=== PATIENT | male | born 1970 | race American Indian/Alaskan Native ===

== ENCOUNTER 2017-05-21 19:01 | Inpatient (IN) | payer OTHER ==
[2017-05-21] MEDS ORDERED: ASPIRIN PO ONE (19:39)
[2017-05-21] MEDS ORDERED: ASPIRIN ONE (19:43)
[2017-05-21 19:56] LABS: Basophils # (Auto) 0.1 K/mm3 (0.0-0.1); Basophils % (Auto) 0.7 % (0.0-1.8); Eosinophils # (Auto) 0.2 K/mm3 (0.0-0.4); Eosinophils % (Auto) 2.5 % (0.0-4.3); Hematocrit 44.2 % (35.5-45.6); Hemoglobin 14.9 gm/dl (11.8-15.2); Lymphocytes # (Auto) 2.4 K/mm3 (1.2-5.4); Lymphocytes % (Auto) 26.6 % (13.4-35.0); Mean Corpuscular HGB Conc 34 % (32-34); Mean Corpuscular Hemoglobin 30 pg (28-32); Mean Corpuscular Volume 88 fl (84-94); Monocytes # (Auto) 0.5 K/mm3 (0.0-0.8); Monocytes % (Auto) 5.8 % (0.0-7.3); Platelet Count 226 K/mm3 (140-440)
[2017-05-21 20:36] LABS: BUN/Creatinine Ratio 12; Blood Urea Nitrogen 13 mg/dL (9-20); Calcium 8.7 mg/dL (8.4-10.2); Hemolysis Index 14
--- NOTE | 2017-05-21 21:34 | XRay Report ---
FINAL REPORT EXAM: XR CHEST ROUTINE 2V HISTORY: Shortness of breath TECHNIQUE: Two view chest PA and lateral PRIORS: None. FINDINGS: Cardiac and mediastinal contours are unremarkable. No focal pulmonary infiltrate is identified. No pleural fluid collection seen. Pulmonary vasculature is unremarkable. IMPRESSION: Negative two-view chest
[2017-05-21 22:16] LABS: Bilirubin,Urine NEG (Negative); Blood,Urine NEG (Negative); Color,Urine Yellow (Yellow); Mucus,Urine FEW /HPF; Nitrite,Urine NEG (Negative)
[2017-05-22] MEDS ORDERED: NACL 0.9% 1000 ML 1,000 ML IV ONE (00:05)
[2017-05-22] MEDS ORDERED: MORPHINE IV ONE (00:31)
[2017-05-22] MEDS ORDERED: ZOFRAN IV ONE (00:31)
[2017-05-22] MEDS ORDERED: TESSALON PERLES PO ONE (00:31)
[2017-05-22] MEDS ORDERED: NACL ONE (01:31)
[2017-05-22] MEDS ORDERED: NACL 0.9% 1000 ML 2,000 ML IV ONE (01:48)
--- NOTE | 2017-05-22 03:33 | Emergency Department Report ---
HPI - General Chief Complaint: Chest Pain Time Seen by Provider: 05/21/17 23:37 - HPI HPI: The patient is a 46 yo male with a history of congestive heart failure, whom presents for evaluation of dyspnea and chest pain. He states that he has experienced bilateral chest pain for the past one day, moderate in severity, sharp and tightness in quality, exacerbated with taking deep breaths, and associated with worsening of shortness of breath and baseline. He has experienced progressive severe shortness of breath for the past week, exacerbated with exertion or activity, improved with sitting up in rest. The patient denies trauma to the chest, headache, cough, hemoptysis, paresthesia, motor deficit, or other focal neurological deficit. ED Past Medical Hx - Past Medical History Previous Medical History?: Yes Hx Hypertension: Yes Hx Congestive Heart Failure: Yes - Surgical History Past Surgical History?: No - Social History Smoking Status: Current Every Day Smoker Substance Use Type: Marijuana ED Review of Systems ROS: Stated complaint: CHEST PAIN Other details as noted in HPI Constitutional: denies: fever ENT: denies: throat or neck pain Respiratory: denies: cough reports shortness of breath Cardiovascular: reports chest pain Endocrine: denies unexplained weight loss or gain Gastrointestinal: denies: abdominal pain, nausea Genitourinary: denies: dysuria Musculoskeletal: denies: leg swelling Skin: denies: rash Neurological: denies: headache Hematological/Lymphatic: denies: easy bleeding or easy bruising Psych: denies sadness or hopelessness Physical Exam - Physical Exam Vital Signs: Vital Signs 05/21/17 05/22/17 19:34 02:00 Temperature 98.6 F Pulse Rate 108 H Respiratory 20 20 Rate Blood Pressure 167/104 O2 Sat by Pulse 93 Oximetry Physical Exam: General: well-nourished, well-developed, no acute distress Head: Normocephalic, atraumatic Eyes: normal sclera ENT: Mucous membranes are pink and moist Neck: trachea midline, neck supple, No neck stiffness, no cervical adenopathy Respiratory: Patient tachypnea, moderate diminished breath sounds in respiratory bibasilar lung marin Cardio: S1 and S2 present, no murmurs, rubs, gallops, capillary refill is brisk Abdomen: Normoactive bowel sounds, soft abdomen, no rigidity, no guarding or rebound tenderness Musc: 1+ pitting edema of bilateral lower legs present Skin: No rash Neuro: no facial drooping, normal speech Psych: Normal affect ED Course Vital Signs 05/21/17 05/22/17 19:34 02:00 Temperature 98.6 F Pulse Rate 108 H Respiratory 20 20 Rate Blood Pressure 167/104 O2 Sat by Pulse 93 Oximetry ED Medical Decision Making - Lab Data Result diagrams: 05/21/17 19:47 05/21/17 19:47 - Medical Decision Making The patient was seen and examined by myself. The patient is placed on a environmental monitoring technician and continuous pulse ox. On initial evaluation, the patient was found to be in no distress. EKG was negative for findings suggestive of acute cardiac infarct. Labs and imaging are obtained. The patient is given pain medicine. Chest x-ray is negative for pneumothorax, focal consolidation, pulmonary vascular congestion, pleural effusion, or other obvious acute cardiopulmonary disease process. Lab results Exhibited elevated BNP of 900, and otherwisewere non-concerning including levels of troponin, WBC, hemoglobin, hematocrit, electrolytes, renal function. CT angiogram of the chest exhibits bilateral pulmonary emboli. A heparin bolus and infusion is ordered. The on-call hospitalist service was contacted. They agreed to admit the patient for further treatment and close monitoring. The ED admit order was placed. The patient was admitted in guarded condition. Critical care attestation.: If time is entered above; I have spent that time in minutes in the direct care of this critically ill patient, excluding procedure time. ED Disposition Clinical Impression: Bilateral pulmonary embolism, Acute chest pain Disposition: OP ADMIT IP TO THIS HOSP Is pt being admited?: Yes Does the pt Need Aspirin: Yes Condition: Serious Instructions: Chest Pain (ED) Referrals: PRIMARY CARE, [Primary Care Provider] - 3-5 Days Time of Disposition: 03:35
[2017-05-22] MEDS ORDERED: HEPARIN 10,000 UNITS/10 ML IV ONE (03:35)
[2017-05-22] MEDS ORDERED: BABY ASPIRIN PO ONE (03:35)
--- NOTE | 2017-05-22 03:36 | Cat Scan Report ---
FINAL REPORT PROCEDURE: CT ANGIO CHEST TECHNIQUE: Computerized tomographic angiography of the chest was performed after the IV injection of iodinated nonionic contrast including image processing. The image data was postprocessed using 2-dimensional multiplanar reformatted (MPR) and 3-dimensional (MIP and/or volume rendered) techniques. HISTORY: dyspnea w/exertion COMPARISON: No prior studies are available for comparison. FINDINGS: Heart and pericardium: Normal. Thoracic aorta: There is no thoracic aortic aneurysm or dissection.. Pulmonary vasculature: There are distal bilateral pulmonary emboli. There are no large central emboli.. Lymph nodes: There is mediastinal and hilar lymphadenopathy.. Lungs: The lungs are well-expanded. There are multiple noncalcified pulmonary nodules. Largest nodules at the left lung base measuring 11 millimeters. These could be granulomas. However, possibility of metastatic malignancy cannot be entirely excluded. There are no infiltrates. Pleural space: No effusion, thickening, or pneumothorax. Musculoskeletal structures: No significant abnormality. Upper abdominal structures: No significant abnormality. IMPRESSION: There are bilateral pulmonary emboli. There is no thoracic aortic aneurysm or dissection. There is mediastinal and hilar lymphadenopathy.. There are multiple noncalcified pulmonary nodules. Largest nodules at the left lung base measuring 11 millimeters. These could be granulomas. However, possibility of metastatic malignancy cannot be entirely excluded. There are no infiltrates. Dr. Turner was notified by telephone at 2:31 a.m. central time.
[2017-05-22] MEDS ORDERED: HEPARIN/ 0.45% NACL-25,000 UNIT/500 ML 25,000 UNIT/500 ML BAG IV SCH (04:00)
[2017-05-22] MEDS ORDERED: MILK OF MAGNESIA PO PRN (04:08)
[2017-05-22] MEDS ORDERED: ZOFRAN IV PRN (04:08)
[2017-05-22] MEDS ORDERED: NORCO 5/325 PO PRN (04:08)
[2017-05-22] MEDS ORDERED: TYLENOL PO PRN (04:08)
[2017-05-22] MEDS ORDERED: DULCOLAX PR PRN (04:08)
[2017-05-22 04:12] LABS: Hematocrit 43.3 % (35.5-45.6); Hemoglobin 14.6 gm/dl (11.8-15.2)
[2017-05-22 04:14] LABS: INR 0.98 (0.87-1.13); Partial Thromboplastin Time 26.9 Sec. (24.2-36.6)
[2017-05-22] MEDS ORDERED: APRESOLINE IV ONE (04:28)
[2017-05-22] MEDS ORDERED: D50W (25GM) Syringe IV PRN (04:49)
--- NOTE | 2017-05-22 05:14 | History and Physical Report ---
History of Present Illness Date of examination: 05/22/17 Date of admission: 05/22/17 04:08 Chief complaint: Shortness of breath History of present illness: 46-year-old -[place] male with past medical history significant for congestive heart failure, hypertension, borderline diabetes, A. fib presented to the emergency department complaining of shortness of breath for the last 5-6 days and progressively getting worse. Patient is also complaining chest pain that started yesterday morning, sting-like pain, 7 out of 10 in intensity, with no radiation, associated with shortness of breath, no diaphoresis. Patient denied leg swelling, palpitation, no nausea, vomiting. Patient used to live in [place] and moved to [place] 3 months ago. She ran out of most of his medications. Initially his ejection fraction was 10% but later improved but don 't know the number. Last time he saw his aerophysicist was 3 years ago. REVIEW OF SYSTEMS: GENERAL: no weight change, no fatigue, no fever HEAD: no head ache EYES: no blurry vision, no acute visual loss EARS: no hearing loss, no discharge, no earache NOSE: no stuffiness, no sneezing, no discharge MOUTH, THROAT AND NECK: no bleeding gums, no sore throat, no swollen neck CARDIAC: As stated in the HPI. RESPIRATORY: As stated in the HPI. GI: no decreased appetite, no nausea, no vomiting, no dysphagia, no diarrhea, no constipation, no abdominal pain URINARY: no change in frequency, no urgency, no polyuria, no hematuria, no incontinence MUSCULOSKELETAL: no muscle weakness, no pain, no joint stiffness NEUROLOGIC: no loss of sensation/numbness, no tingling, no tremors, no weakness/ paralysis HEMATOLOGIC: no anemia, no easy bruising SKIN: no rashes ENDOCRINE: no heat/cold intolerance, no polyuria, no polydipsia, no thyroid problems, + diabetes PSYCHIATRIC: no anxiety, no depression, no suicidal ideations Past History Past Medical History: diabetes, heart failure, hypertension Past Surgical History: No surgical history Social history: smoking ( marijuana), full code. denies: alcohol abuse, prescription drug abuse, IV drug use Family history: no significant family history Medications and Allergies Allergies Allergy/AdvReac Type Severity Reaction Status Date / Time No Known Allergies Allergy Unverified 05/21/17 19:33 Active Meds: Active Medications Acetaminophen (Tylenol) 650 mg PO Q4H PRN PRN Reason: Pain MILD(1-3)/Fever >100.5/MOREL Acetaminophen/Hydrocodone Bitart ([place] 5/325) 2 each PO Q6H PRN PRN Reason: Pain, Moderate (4-6) Bisacodyl (Dulcolax) 10 mg ND QDAY PRN PRN Reason: Constipation unrelieved by MOM Dextrose (D50w (25gm) Syringe) 50 ml IV PRN PRN PRN Reason: Hypoglycemia Docusate Sodium (Colace) 100 mg PO BID [facility] Famotidine (Pepcid) 20 mg PO BID [facility] Heparin Sodium/Sodium Chloride (Heparin/ 0.45% Nacl-25,000 Unit/500 Ml) 25,000 unit in 500 mls @ 30 mls/hr IV TITR [facility]; 1,500 UNITS/HR PRN Reason: Protocol Last Admin: 05/22/17 04:27 Dose: 1,500 units/hr, 30 mls/hr Insulin Aspart (Novolog) 0 units SUB-Q ACHS [facility] PRN Reason: Protocol Magnesium Hydroxide (Milk Of Magnesia) 30 ml PO Q4H PRN PRN Reason: Constipation Ondansetron HCl (Zofran) 4 mg IV Q8H PRN PRN Reason: N/V unrelieved by Reglan Exam - Physical Exam Narrative exam: Not in cardiopulmonary distress. The patient appeared well nourished and normally developed. Vital signs as documented. Head exam is unremarkable. No scleral icterus . Neck is without jugular venous distension, thyromegaly, or carotid bruits. Lungs are clear to auscultation. Cardiac exam reveals regular rate and Rhythm. First and second heart sounds normal. No murmurs, rubs or gallops. Abdominal exam reveals normal bowel sounds, no masses, no organomegaly and no aortic enlargement. Extremities are nonedematous and both femoral and pedal pulses are normal. 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 No focal weakness. - Constitutional Vitals: Temp Pulse Resp BP Pulse Ox 98.6 F 113 H 15 162/108 93 05/21/17 19:34 05/22/17 04:56 05/22/17 04:46 05/22/17 04:56 05/21/17 19:34 Results - Labs CBC & Chem 7: 05/22/17 03:42 05/21/17 19:47 Labs: Laboratory Last Values WBC 8.9 K/mm3 (4.5-11.0) 05/21/17 19:47 RBC 5.00 M/mm3 (3.65-5.03) 05/21/17 19:47 Hgb 14.6 gm/dl (11.8-15.2) 05/22/17 03:42 Hct 43.3 % (35.5-45.6) 05/22/17 03:42 MCV 88 fl (84-94) 05/21/17 19:47 MCH 30 pg (28-32) 05/21/17 19:47 MCHC 34 % (32-34) 05/21/17 19:47 RDW 13.0 % (13.2-15.2) L 05/21/17 19:47 Plt Count 199 K/mm3 (140-440) 05/22/17 03:42 Lymph % (Auto) 26.6 % (13.4-35.0) 05/21/17 19:47 [place] % (Auto) 5.8 % (0.0-7.3) 05/21/17 19:47 Eos % (Auto) 2.5 % (0.0-4.3) 05/21/17 19:47 Baso % (Auto) 0.7 % (0.0-1.8) 05/21/17 19:47 Lymph # 2.4 K/mm3 (1.2-5.4) 05/21/17 19:47 [place] # 0.5 K/mm3 (0.0-0.8) 05/21/17 19:47 Eos # 0.2 K/mm3 (0.0-0.4) 05/21/17 19:47 Baso # 0.1 K/mm3 (0.0-0.1) 05/21/17 19:47 Seg Neutrophils % 64.4 % (40.0-70.0) 05/21/17 19:47 Seg Neutrophils # 5.7 K/mm3 (1.8-7.7) 05/21/17 19:47 PT 13.5 Sec. (12.2-14.9) 05/22/17 03:42 INR 0.98 (0.87-1.13) 05/22/17 03:42 APTT 26.9 Sec. (24.2-36.6) 05/22/17 03:42 Sodium 137 mmol/L (137-145) 05/21/17 19:47 Potassium 4.1 mmol/L (3.6-5.0) 05/21/17 19:47 Chloride 96.8 mmol/L (98-107) L 05/21/17 19:47 Carbon Dioxide 24 mmol/L (22-30) 05/21/17 19:47 Anion Gap 20 mmol/L 05/21/17 19:47 BUN 13 mg/dL (9-20) 05/21/17 19:47 Creatinine 1.1 mg/dL (0.8-1.5) 05/21/17 19:47 Estimated GFR > 60 ml/min 05/21/17 19:47 BUN/Creatinine Ratio 12 % 05/21/17 19:47 Glucose 279 mg/dL (75-100) H 05/21/17 19:47 Calcium 8.7 mg/dL (8.4-10.2) 05/21/17 19:47 Troponin T < 0.010 ng/mL (0.00-0.029) 05/22/17 01:36 NT-Pro-B Natriuret Pep 846.2 pg/mL (0-450) H 05/21/17 22:56 Urine Color Yellow (Yellow) 05/21/17 21:49 Urine Turbidity Clear (Clear) 05/21/17 21:49 Urine pH 5.0 (5.0-7.0) 05/21/17 21:49 Ur Specific [place] 1.023 (1.003-1.030) 05/21/17 21:49 Urine Protein 100 mg/dl mg/dL (Negative) 05/21/17 21:49 Urine Glucose (UA) >=500 mg/dL (Negative) 05/21/17 21:49 Urine Ketones Neg mg/dL (Negative) 05/21/17 21:49 Urine Blood Neg (Negative) 05/21/17 21:49 Urine Nitrite Neg (Negative) 05/21/17 21:49 Urine Bilirubin Neg (Negative) 05/21/17 21:49 Urine Urobilinogen 2.0 mg/dL (<2.0) 05/21/17 21:49 Ur Leukocyte Esterase Neg (Negative) 05/21/17 21:49 Urine WBC (Auto) 2.0 /HPF (0.0-6.0) 05/21/17 21:49 Urine RBC (Auto) 2.0 /HPF (0.0-6.0) 05/21/17 21:49 U Epithel Cells (Auto) 2.0 /HPF (0-13.0) 05/21/17 21:49 Urine Mucus Few /HPF 05/21/17 21:49 Influenza A (Rapid) Negative (Negative) 05/22/17 02:21 Influenza B (Rapid) Negative (Negative) 05/22/17 02:21 - Imaging and Cardiology CT scan - chest: report reviewed (bilateral PE, malignancy cannot be ruled out) Assessment and Plan Assessment and plan: Bilateral PE ?Lung cancer based on CT scan finding CHF Atrial fibrillation status post cardioversion 2005 Diabetes mellitus type 2 Uncontrolled hypertension Medication noncompliance - Patient is on heparin drip - Echo, [facility] consulted - Resume appropriate home medications - Sliding-scale insulin DVT prophylaxis -Therapeutic heparin Disposition - Admit to telemetry Advance Directives: Yes VTE prophylaxis?: Chemical Plan of care discussed with patient/family: Yes
[2017-05-22] MEDS ORDERED: COREG ONE (06:35)
[2017-05-22] MEDS: COREG PO SCH ×3 (06:36→23:13)
[2017-05-22] MEDS: NOVOLOG SUB-Q SCH ×4 (08:45→23:18)
[2017-05-22] MEDS ORDERED: APRESOLINE IV PRN (10:00)
[2017-05-22] MEDS: COLACE PO SCH ×2 (11:02→23:13)
[2017-05-22] MEDS: PEPCID PO SCH ×2 (11:03→23:13)
[2017-05-22] MEDS: ALDACTONE PO SCH (11:34)
[2017-05-22] MEDS: IMDUR PO SCH (11:58)
--- NOTE | 2017-05-22 16:33 | Event Note ---
Date: 05/22/17 Patient seen and examined in the ER in acute distress diagnoses discussed with the patient. We'll continue current treatment plan. Positive counseling provided to the patient against tobacco use and also against marijuana use patient verbalized understanding of 15 minutes was spent on this counseling.
--- NOTE | 2017-05-22 18:12 | Consultation ---
History of Present Illness Consult date: 05/22/17 Consult reason: chest pain History of present illness: This is a 46-year-old gentleman with a past medical history of congestive heart failure per his report, borderline diabetes, and hypertension who recently moved here from [facility]. The patient reports he was not taking any medications prior to this admission. In the emergency department the patient was noted to have a blood pressure of 167/104 mmHg. He was tachycardic sinus at 108 bpm. His hemoglobin A1c was 8.0 and his blood glucose was 279. The patient presented to the emergency department complaining of chest pain or shortness of breath. A CT of the chest revealed bilateral pulmonary emboli. Currently the patient is on IV heparin drip. Past History Past Medical History: diabetes, heart failure, hypertension Past Surgical History: No surgical history Social history: smoking ( marijuana), full code. denies: alcohol abuse, prescription drug abuse, IV drug use Family history: no significant family history Medications and Allergies Allergies Allergy/AdvReac Type Severity Reaction Status Date / Time No Known Allergies Allergy Unverified 05/21/17 19:33 Home Medications Medication Instructions Recorded Confirmed Last Taken Type Carvedilol [Coreg] 6.25 mg PO BID 05/22/17 05/22/17 05/21/17 History Digoxin [Digitek] 125 mcg PO QDAY 05/22/17 05/22/17 04/21/17 History Glimepiride [Amaryl] 4 mg PO QAM 05/22/17 05/22/17 04/21/17 History Isosorbide Mononitrate 30 mg PO QAM 05/22/17 05/22/17 04/21/17 History Spironolactone [Aldactone] 50 mg PO QDAY 05/22/17 05/22/17 05/21/17 History Warfarin [Coumadin] 5 mg PO QDAY 05/22/17 05/22/17 03/21/17 History 2 tablets PO QD Active Meds: Active Medications Acetaminophen (Tylenol) 650 mg PO Q4H PRN PRN Reason: Pain MILD(1-3)/Fever >100.5/MOREL Acetaminophen/Hydrocodone Bitart ([place] 5/325) 2 each PO Q6H PRN PRN Reason: Pain, Moderate (4-6) Last Admin: 05/22/17 07:58 Dose: 2 each Bisacodyl (Dulcolax) 10 mg NM QDAY PRN PRN Reason: Constipation unrelieved by MOM Carvedilol (Coreg) 6.25 mg PO BID [facility] Last Admin: 05/22/17 11:02 Dose: 6.25 mg Dextrose (D50w (25gm) Syringe) 50 ml IV PRN PRN PRN Reason: Hypoglycemia Digoxin (Lanoxin) 0.125 mg PO QDAY@1700 [facility] Docusate Sodium (Colace) 100 mg PO BID [facility] Last Admin: 05/22/17 11:02 Dose: 100 mg Famotidine (Pepcid) 20 mg PO BID [facility] Last Admin: 05/22/17 11:03 Dose: 20 mg Hydralazine HCl (Apresoline) 10 mg IV Q4H PRN PRN Reason: Hypertension Heparin Sodium/Sodium Chloride (Heparin/ 0.45% Nacl-25,000 Unit/500 Ml) 25,000 unit in 500 mls @ 30 mls/hr IV TITR [facility]; 1,500 UNITS/HR PRN Reason: Protocol Last Titration: 05/22/17 12:30 Dose: 32 units/hr, 0.64 mls/hr Insulin Aspart (Novolog) 0 units SUB-Q ACHS [facility] PRN Reason: Protocol Last Admin: 05/22/17 15:37 Dose: 2 units Isosorbide Mononitrate (Imdur) 30 mg PO QAM [facility] Last Admin: 05/22/17 11:58 Dose: 30 mg Magnesium Hydroxide (Milk Of Magnesia) 30 ml PO Q4H PRN PRN Reason: Constipation Ondansetron HCl (Zofran) 4 mg IV Q8H PRN PRN Reason: N/V unrelieved by Reglan Last Admin: 05/22/17 09:38 Dose: 4 mg Spironolactone (Aldactone) 50 mg PO QDAY [facility] Last Admin: 05/22/17 11:34 Dose: 50 mg Warfarin Sodium (Coumadin) 7.5 mg PO DAILY@1700 [facility] PRN Reason: Protocol Review of Systems Constitutional: no weight loss, no weight gain, no fever, no chills Ears, nose, mouth and throat: no ear pain, no ear discharge Cardiovascular: chest pain, shortness of breath, dyspnea on exertion, no orthopnea, no palpitations Respiratory: no cough with sputum, no wheezing, no pleurisy Gastrointestinal: nausea, no abdominal pain, no vomiting Genitourinary Male: no dysuria, no hematuria, no flank pain Rectal: no pain, no incontinence Musculoskeletal: no neck stiffness, no neck pain Integumentary: no rash, no pruritis Neurological: headaches Psychiatric: no anxiety, no memory loss Endocrine: no cold intolerance, no heat intolerance Hematologic/Lymphatic: no easy bruising, no easy bleeding Allergic/Immunologic: no urticaria Physical Examination Vital Signs Temp Pulse Resp BP Pulse Ox 98.6 F 108 H 20 167/104 93 05/21/17 19:34 05/21/17 19:34 05/21/17 19:34 05/21/17 19:34 05/21/17 19:34 General appearance: no acute distress HEENT: Positive: PERRL Neck: Positive: neck supple, trachea midline Cardiac: Positive: Regular Rhythm, Tachycardia Lungs: Positive: Normal Exam, clear to auscultation, Normal Breath Sounds Neuro: Positive: Grossly Intact Abdomen: Positive: Unremarkable, Soft, Active Bowel Sounds Male genitourinary: Positive: deferred Skin: Negative: Rash, Suspicious Lesions Extremities: Present: normal, warm. Absent: edema Results 05/22/17 03:42 05/21/17 19:47 Coagulation 05/22/17 Range/Units 03:42 PT 13.5 (12.2-14.9) Sec. INR 0.98 (0.87-1.13) APTT 26.9 (24.2-36.6) Sec. CBC 05/21/17 05/22/17 Range/Units 19:47 03:42 WBC 8.9 (4.5-11.0) K/mm3 RBC 5.00 (3.65-5.03) M/mm3 Hgb 14.9 14.6 (11.8-15.2) gm/dl Hct 44.2 43.3 (35.5-45.6) % Plt Count 226 199 (140-440) K/mm3 Lymph # 2.4 (1.2-5.4) K/mm3 [place] # 0.5 (0.0-0.8) K/mm3 Eos # 0.2 (0.0-0.4) K/mm3 Baso # 0.1 (0.0-0.1) K/mm3 Comprehensive Metabolic Panel 05/21/17 Range/Units 19:47 Sodium 137 (137-145) mmol/L Potassium 4.1 (3.6-5.0) mmol/L Chloride 96.8 L (98-107) mmol/L Carbon Dioxide 24 (22-30) mmol/L BUN 13 (9-20) mg/dL Creatinine 1.1 (0.8-1.5) mg/dL Glucose 279 H (75-100) mg/dL Calcium 8.7 (8.4-10.2) mg/dL - Imaging and Cardiology Echo: pending Assessment and Plan 46-year-old male who recently moved here from [facility] presents to [facility] complaining of chest pain or shortness of breath. The patient reports that he has a history of borderline diabetes, heart failure, and hypertension. Of note the patient had not been taking any of his medications prior to his presentation in the emergency department. Within the emergency department the patient had a CT of the chest which revealed bilateral pulmonary emboli. Plan: 1. Continue supportive care 2. Echocardiogram 3. Blood pressure management
[2017-05-22] MEDS: LANOXIN PO SCH (18:27)
[2017-05-22] MEDS: COUMADIN PO SCH (18:27)
[2017-05-23 06:36] LABS: Basophils % (Auto) 0.3 % (0.0-1.8); Eosinophils # (Auto) 0.2 K/mm3 (0.0-0.4); Eosinophils % (Auto) 1.5 % (0.0-4.3); Hematocrit 43.4 % (35.5-45.6); Hemoglobin 14.3 gm/dl (11.8-15.2); Lymphocytes # (Auto) 2.7 K/mm3 (1.2-5.4); Mean Corpuscular HGB Conc 33 % (32-34); Mean Corpuscular Hemoglobin 29 pg (28-32); Mean Corpuscular Volume 89 fl (84-94); Monocytes # (Auto) 0.8 K/mm3 (0.0-0.8); Monocytes % (Auto) 6.8 % (0.0-7.3); Platelet Count 242 K/mm3 (140-440); Red Blood Count 4.89 M/mm3 (3.65-5.03); Red Cell Distribution Width 13.1 % (13.2-15.2)
[2017-05-23 06:46] LABS: INR 0.96 (0.87-1.13)
[2017-05-23 06:49] LABS: Heparin anti-factor XA < 0.10 U.I./ml (0.3-0.7)
[2017-05-23 07:03] LABS: BUN/Creatinine Ratio 14; Blood Urea Nitrogen 13 mg/dL (9-20); Calcium 8.9 mg/dL (8.4-10.2); Hemolysis Index 64
[2017-05-23] MEDS: NOVOLOG SUB-Q SCH ×2 (08:12→22:00)
[2017-05-23] MEDS ORDERED: HEPARIN 10,000 UNITS/10 ML IV NR (08:30)
--- NOTE | 2017-05-23 08:49 | Progress Note ---
Assessment and Plan Acute on chronic systolic heart failure Acute bilateral pulmonary embolism Hypertension accelerated Respiratory failure acute Obesity Recommend change to Lovenox continue Coumadin will add BERNARD inhibitor in view LV dysfunction increase Coreg for better heart rate control Subjective Date of service: 05/23/17 Principal diagnosis: bilateral pulmonary embolism and systolic heart failure Interval history: Patient is laying in bed without any chest pain or shortness of breath Objective Vital Signs Temp Pulse Resp BP BP Pulse Ox 05/23/17 06:10 97.8 F 104 H 18 150/100 91 05/23/17 00:18 90 05/22/17 23:56 98.7 F 93 H 20 143/87 85 05/22/17 22:09 98.4 F 95 H 18 147/98 93 05/22/17 21:30 96 H 23 143/104 05/22/17 21:20 108 H 26 H 141/103 05/22/17 21:16 98 H 18 141/103 97 05/22/17 21:09 141/103 05/22/17 18:53 143/104 05/22/17 18:27 96 H 155/100 05/22/17 18:00 155/100 05/22/17 17:16 29 H 146/94 05/22/17 17:00 23 146/94 05/22/17 16:46 26 H 140/91 05/22/17 16:30 23 142/96 05/22/17 16:16 22 142/96 05/22/17 16:00 23 140/91 05/22/17 15:46 24 143/97 05/22/17 15:30 97 H 23 143/97 05/22/17 15:16 97 H 23 142/96 05/22/17 15:00 97 H 24 142/96 05/22/17 14:46 94 H 26 H 146/99 05/22/17 14:42 98 H 23 143/97 05/22/17 13:30 143/97 05/22/17 13:15 143/97 05/22/17 13:00 143/97 05/22/17 12:46 148/94 05/22/17 12:30 86 148/94 05/22/17 12:16 95 H 148/94 05/22/17 12:00 90 148/94 05/22/17 11:46 92 H 143/100 05/22/17 11:34 96 H 155/100 05/22/17 11:30 94 H 143/100 05/22/17 11:16 97 H 24 143/100 05/22/17 11:02 96 H 155/100 05/22/17 11:00 99 H 24 143/100 05/22/17 10:46 100 H 25 H 155/100 05/22/17 10:30 97 H 25 H 155/100 05/22/17 10:16 99 H 29 H 155/100 05/22/17 10:00 97 H 22 155/100 05/22/17 09:46 103 H 26 H 157/116 05/22/17 09:30 101 H 24 157/116 05/22/17 09:16 100 H 15 157/116 05/22/17 09:00 95 H 22 157/116 - Physical Examination General: No Apparent Distress HEENT: Positive: PERRL Neck: Positive: neck supple, trachea midline Cardiac: Positive: Reg Rate and Rhythm Neuro: Positive: Grossly Intact Abdomen: Positive: Unremarkable, Soft, Active Bowel Sounds Skin: Negative: Rash, Suspicious Lesions Extremities: Present: normal, warm. Absent: edema - Labs and Meds Coagulation 05/23/17 Range/Units 06:08 PT 13.3 (12.2-14.9) Sec. INR 0.96 (0.87-1.13) CBC 05/23/17 Range/Units 06:08 WBC 11.2 H (4.5-11.0) K/mm3 RBC 4.89 (3.65-5.03) M/mm3 Hgb 14.3 (11.8-15.2) gm/dl Hct 43.4 (35.5-45.6) % Plt Count 242 (140-440) K/mm3 Lymph # 2.7 (1.2-5.4) K/mm3 [place] # 0.8 (0.0-0.8) K/mm3 Eos # 0.2 (0.0-0.4) K/mm3 Baso # 0.0 (0.0-0.1) K/mm3 Comprehensive Metabolic Panel 05/23/17 Range/Units 06:08 Sodium 134 L (137-145) mmol/L Potassium 4.4 (3.6-5.0) mmol/L Chloride 93.0 L (98-107) mmol/L Carbon Dioxide 27 (22-30) mmol/L BUN 13 (9-20) mg/dL Creatinine 0.9 (0.8-1.5) mg/dL Glucose 203 H (75-100) mg/dL Calcium 8.9 (8.4-10.2) mg/dL - Imaging and Cardiology Echo: report reviewed (moderate spelled it is function EF 2530% mild mitral regurgitation mild tricuspid regurgitation with normal RVSP normal RV size and function) Cardiac cath: other (2005 as per the patient cardiac catheterization was normal) - Telemetry EKG Rhythm: Sinus Tachycardia
[2017-05-23] MEDS ORDERED: LOVENOX SUB-Q SCH (10:00)
[2017-05-23] MEDS: COLACE PO SCH ×2 (11:13→22:00)
[2017-05-23] MEDS: ALDACTONE PO SCH (11:13)
[2017-05-23] MEDS: IMDUR PO SCH (11:14)
[2017-05-23] MEDS: COREG PO SCH ×2 (11:14→21:53)
[2017-05-23] MEDS: ZESTRIL PO SCH ×2 (11:14→21:54)
[2017-05-23] MEDS: PEPCID PO SCH ×2 (11:14→21:53)
[2017-05-23] MEDS: LOVENOX SUB-Q SCH ×2 (11:15→21:55)
--- NOTE | 2017-05-23 12:08 | Progress Note ---
Assessment and Plan Assessment and plan: 46-year-old -Latvian male with past medical history significant for congestive heart failure, hypertension, borderline diabetes, A. fib presented to the emergency department complaining of shortness of breath for the last 5-6 days and progressively getting worse. Patient is also complaining chest pain that started yesterday morning, sting-like pain, 7 out of 10 in intensity, with no radiation, associated with shortness of breath, no diaphoresis. Patient denied leg swelling, palpitation, no nausea, vomiting. Patient used to live in [place] and moved to [place] 3 months ago. She ran out of most of his medications. Initially his ejection fraction was 10% but later improved but don 't know the number. Last time he saw his manager property was 3 years ago. Bilateral Pulmonary Embolisim Acute * Non compliance with medication in a setting of A fib. * Switched to Lovenox an coumadin. Discussed importance of compliance * Case management to review insurance coverage prior to discharge Acute on chronic systolic heart failure * Cardiology input noted. * Coreg increased, BERNARD inhibitor added Cardiomyopathy * moderate spelled it is function EF 2530% mild mitral regurgitation mild tricuspid regurgitation with normal RVSP normal RV size and function * Previous normal cardiac cath in 2005 Atrial Fibrillation * Rate control and anticoagulation as noted Hypertension accelerated * Meds as adjusted Respiratory failure acute * Secondary to the Pulmonary embolisim. Monitor Pulmonary Nodule * Pulmonary eval outaptient and also repeat CT chest Obesity * Weight loss recommendation Diabetes mellitus type 2 * Continue insulin siLding scale DVT prophylaxis -Therapeutic Lovenox Plan discussed with the patient in detail History Interval history: Patient seen and examined in no acute distress. Still with some shortness of breath. Reports that he stopped taken his warfarin because he did not think he needs them Hospitalist Physical - Physical exam Narrative exam: VITAL SIGNS: Reviewed. GENERAL: The patient appeared well nourished and normally developed. Vital signs as documented. HEAD: No signs of head trauma. EYES: Pupils are equal. Extraocular motions intact. EARS: Hearing grossly intact. MOUTH: Oropharynx is normal. NECK: No adenopathy, no JVD. CHEST: Chest with clear breath sounds bilaterally. No wheezes, rales, or rhonchi. CARDIAC: Regular rate and rhythm. S1 and S2, without murmurs, gallops, or rubs. VASCULAR: No Edema. Peripheral pulses normal and equal in all extremities. ABDOMEN: Soft, without detectable tenderness. No sign of distention. No rebound or guarding, and no masses palpated. Bowel Sounds normal. MUSCULOSKELETAL: Good range of motion of all major joints. Extremities without clubbing, cyanosis or edema. NEUROLOGIC EXAM: Alert and oriented x 3. No focal sensory or strength deficits. Speech normal. Follows commands. PSYCHIATRIC: Mood normal. SKIN: No rash or lesions. - Constitutional Vitals: Temp Pulse Resp BP Pulse Ox 97.8 F 105 H 18 148/101 91 05/23/17 06:10 05/23/17 11:14 05/23/17 06:10 05/23/17 11:14 05/23/17 06:10 General appearance: Present: no acute distress Results - Labs CBC & Chem 7: 05/23/17 06:08 05/23/17 06:08 Labs: Laboratory Last Values WBC 11.2 K/mm3 (4.5-11.0) H 05/23/17 06:08 RBC 4.89 M/mm3 (3.65-5.03) 05/23/17 06:08 Hgb 14.3 gm/dl (11.8-15.2) 05/23/17 06:08 Hct 43.4 % (35.5-45.6) 05/23/17 06:08 MCV 89 fl (84-94) 05/23/17 06:08 MCH 29 pg (28-32) 05/23/17 06:08 MCHC 33 % (32-34) 05/23/17 06:08 RDW 13.1 % (13.2-15.2) L 05/23/17 06:08 Plt Count 242 K/mm3 (140-440) 05/23/17 06:08 Lymph % (Auto) 24.0 % (13.4-35.0) 05/23/17 06:08 [place] % (Auto) 6.8 % (0.0-7.3) 05/23/17 06:08 Eos % (Auto) 1.5 % (0.0-4.3) 05/23/17 06:08 Baso % (Auto) 0.3 % (0.0-1.8) 05/23/17 06:08 Lymph # 2.7 K/mm3 (1.2-5.4) 05/23/17 06:08 [place] # 0.8 K/mm3 (0.0-0.8) 05/23/17 06:08 Eos # 0.2 K/mm3 (0.0-0.4) 05/23/17 06:08 Baso # 0.0 K/mm3 (0.0-0.1) 05/23/17 06:08 Seg Neutrophils % 67.4 % (40.0-70.0) 05/23/17 06:08 Seg Neutrophils # 7.6 K/mm3 (1.8-7.7) 05/23/17 06:08 PT 13.3 Sec. (12.2-14.9) 05/23/17 06:08 INR 0.96 (0.87-1.13) 05/23/17 06:08 APTT 26.9 Sec. (24.2-36.6) 05/22/17 03:42 Heparin Anti-Xa Level < 0.10 U.I./ml (0.3-0.7) L 05/23/17 06:08 Sodium 134 mmol/L (137-145) L 05/23/17 06:08 Potassium 4.4 mmol/L (3.6-5.0) 05/23/17 06:08 Chloride 93.0 mmol/L (98-107) L 05/23/17 06:08 Carbon Dioxide 27 mmol/L (22-30) 05/23/17 06:08 Anion Gap 18 mmol/L 05/23/17 06:08 BUN 13 mg/dL (9-20) 05/23/17 06:08 Creatinine 0.9 mg/dL (0.8-1.5) 05/23/17 06:08 Estimated GFR > 60 ml/min 05/23/17 06:08 BUN/Creatinine Ratio 14 % 05/23/17 06:08 Glucose 203 mg/dL (75-100) H 05/23/17 06:08 POC Glucose 198 (70-105) H 05/22/17 23:20 Hemoglobin A1c 8.0 % (4-6) H 05/22/17 03:42 Calcium 8.9 mg/dL (8.4-10.2) 05/23/17 06:08 Troponin T < 0.010 ng/mL (0.00-0.029) 05/22/17 01:36 NT-Pro-B Natriuret Pep 846.2 pg/mL (0-450) H 05/21/17 22:56 Urine Color Yellow (Yellow) 05/21/17 21:49 Urine Turbidity Clear (Clear) 05/21/17 21:49 Urine pH 5.0 (5.0-7.0) 02 21:49 Ur Specific [place] 1.023 (1.003-1.030) 05/21/17 21:49 Urine Protein 100 mg/dl mg/dL (Negative) 05/21/17 21:49 Urine Glucose (UA) >=500 mg/dL (Negative) 05/21/17 21:49 Urine Ketones Neg mg/dL (Negative) 05/21/17 21:49 Urine Blood Neg (Negative) 05/21/17 21:49 Urine Nitrite Neg (Negative) 05/21/17 21:49 Urine Bilirubin Neg (Negative) 05/21/17 21:49 Urine Urobilinogen 2.0 mg/dL (<2.0) 05/21/17 21:49 Ur Leukocyte Esterase Neg (Negative) 05/21/17 21:49 Urine WBC (Auto) 2.0 /HPF (0.0-6.0) 05/21/17 21:49 Urine RBC (Auto) 2.0 /HPF (0.0-6.0) 05/21/17 21:49 U Epithel Cells (Auto) 2.0 /HPF (0-13.0) 05/21/17 21:49 Urine Mucus Few /HPF 05/21/17 21:49 Influenza A (Rapid) Negative (Negative) 05/22/17 02:21 Influenza B (Rapid) Negative (Negative) 05/22/17 02:21 - Imaging and Cardiology CT scan - chest: image reviewed (PE)
[2017-05-23] MEDS: LANOXIN PO SCH (18:20)
[2017-05-23] MEDS: COUMADIN PO SCH (18:20)
[2017-05-24 06:55] LABS: Basophils % (Auto) 0.3 % (0.0-1.8); Eosinophils # (Auto) 0.2 K/mm3 (0.0-0.4); Eosinophils % (Auto) 3.1 % (0.0-4.3); Hematocrit 43.7 % (35.5-45.6); Hemoglobin 14.7 gm/dl (11.8-15.2); Lymphocytes # (Auto) 2.6 K/mm3 (1.2-5.4); Lymphocytes % (Auto) 33.1 % (13.4-35.0); Mean Corpuscular HGB Conc 34 % (32-34); Mean Corpuscular Hemoglobin 30 pg (28-32); Mean Corpuscular Volume 88 fl (84-94); Monocytes # (Auto) 0.6 K/mm3 (0.0-0.8); Monocytes % (Auto) 7.6 % (0.0-7.3); Platelet Count 230 K/mm3 (140-440); Red Blood Count 4.98 M/mm3 (3.65-5.03)
[2017-05-24 07:12] LABS: BUN/Creatinine Ratio 14; Blood Urea Nitrogen 13 mg/dL (9-20); Calcium 8.8 mg/dL (8.4-10.2); Hemolysis Index 12
[2017-05-24] MEDS: IMDUR PO SCH (09:18)
[2017-05-24] MEDS: COREG PO SCH ×2 (09:19→21:48)
[2017-05-24] MEDS: ZESTRIL PO SCH (09:19)
[2017-05-24] MEDS: COLACE PO SCH ×2 (09:20→21:48)
[2017-05-24] MEDS: NOVOLOG SUB-Q SCH ×4 (09:20→22:01)
[2017-05-24] MEDS: PEPCID PO SCH (09:20)
[2017-05-24] MEDS: ALDACTONE PO SCH (09:20)
[2017-05-24] MEDS: LOVENOX SUB-Q SCH ×2 (09:22→21:49)
--- NOTE | 2017-05-24 10:10 | Progress Note ---
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 with Lovenox and Coumadin bridging follow-up in the office for INR testing Subjective Date of service: 05/24/17 Principal diagnosis: bilateral pulmonary embolism and systolic heart failure Interval history: pt lying in bed no sob Objective Vital Signs Temp Pulse Resp BP BP Pulse Ox 05/24/17 09:20 98 H 158/113 05/24/17 09:19 98 H 158/113 05/24/17 09:18 98 H 158/113 05/24/17 08:22 97.3 F L 96 H 19 158/113 93 05/24/17 05:54 98.6 F 92 H 20 119/74 94 05/24/17 05:28 101 H 05/24/17 00:49 98.3 F 90 20 129/84 92 05/23/17 23:24 96 05/23/17 21:54 102 H 143/91 05/23/17 21:53 102 H 143/91 05/23/17 20:51 98.8 F 102 H 18 143/91 95 05/23/17 18:20 115 H 05/23/17 17:08 106 H 150/98 96 05/23/17 12:08 105 H 91 05/23/17 11:14 105 H 148/101 05/23/17 11:13 105 H 148/101 05/23/17 11:11 105 H 148/101 - Physical Examination General: No Apparent Distress HEENT: Positive: PERRL Neck: Positive: neck supple, trachea midline Cardiac: Positive: Tachycardia Lungs: Positive: clear to auscultation Neuro: Positive: Grossly Intact Abdomen: Positive: Unremarkable, Soft, Active Bowel Sounds Skin: Negative: Rash, Suspicious Lesions Extremities: Present: normal, warm. Absent: edema - Labs and Meds Coagulation 05/24/17 Range/Units 05:08 PT 13.7 (12.2-14.9) Sec. INR 1.00 (0.87-1.13) CBC 05/24/17 Range/Units 05:08 WBC 8.0 (4.5-11.0) K/mm3 RBC 4.98 (3.65-5.03) M/mm3 Hgb 14.7 (11.8-15.2) gm/dl Hct 43.7 (35.5-45.6) % Plt Count 230 (140-440) K/mm3 Lymph # 2.6 (1.2-5.4) K/mm3 [place] # 0.6 (0.0-0.8) K/mm3 Eos # 0.2 (0.0-0.4) K/mm3 Baso # 0.0 (0.0-0.1) K/mm3 Comprehensive Metabolic Panel 05/24/17 Range/Units 05:08 Sodium 137 (137-145) mmol/L Potassium 3.9 (3.6-5.0) mmol/L Chloride 96.3 L (98-107) mmol/L Carbon Dioxide 26 (22-30) mmol/L BUN 13 (9-20) mg/dL Creatinine 0.9 (0.8-1.5) mg/dL Glucose 161 H (75-100) mg/dL Calcium 8.8 (8.4-10.2) mg/dL - Imaging and Cardiology Echo: report reviewed (moderate spelled it is function EF 2530% mild mitral regurgitation mild tricuspid regurgitation with normal RVSP normal RV size and function) Cardiac cath: other (2005 as per the patient cardiac catheterization was normal) - Telemetry EKG Rhythm: Sinus Rhythm (avg hr 90's)
[2017-05-24] MEDS ORDERED: COREG PO ONE (11:00)
[2017-05-24] MEDS ORDERED: COREG PO SCH (11:00)
--- NOTE | 2017-05-24 11:13 | Progress Note ---
Assessment and Plan Assessment and plan: A/P; Acute on chronic Respiratory failure with hypoxia * Continue Nebs, oxygen support, Pulmonary consult noted * Repeat chest x-ray in a.m. Right Upper lobe pleural effusion * IR for diagnostic thoracentesis. Send labs * Follow labs cytology of this points from pathologist negative for any malignancy. Hepatic masses * We'll obtain IR for biopsy Uterine mass * We'll obtain pelvic ultrasound and transvaginal ultrasound * OVEN OPERATOR consult Left pulmonary nodule with mass effect * May eventually need CTS surgery. Breast Nodule * Discussed with Breast surgeon, will set up for outpatient evaluation Sinus tachycardia * stop albuterol start xopenex Insomnia * Ambien SIRS * Secondary to above. May also have underlying infection. start on broad specturm abx after cultueres * R/o Influenza Presumed Metastatic Disease * Consult Hematology oncology DVT/GI prophy Plan discussed with patient and family results of and discussed. History Interval history: Feels much better. No SOB. Got lisinopril mistakenly earlier today. Hospitalist Physical - Constitutional Vitals: Temp Pulse Resp BP Pulse Ox 97.3 F L 98 H 19 159/113 93 05/24/17 08:22 05/24/17 10:56 05/24/17 08:22 05/24/17 10:56 05/24/17 08:22 General appearance: Present: no acute distress, well-nourished - EENT Eyes: Present: PERRL, EOM intact - Respiratory Respiratory effort: normal - Cardiovascular Rhythm: regular Heart Sounds: Present: S1 & S2, gallop - Extremities Extremities: No edema, Full ROM Peripheral Pulses: within normal limits - Abdominal General gastrointestinal: soft, non-tender Results - Labs CBC & Chem 7: 05/24/17 05:08 05/24/17 05:08 Labs: Laboratory Last Values WBC 8.0 K/mm3 (4.5-11.0) 05/24/17 05:08 RBC 4.98 M/mm3 (3.65-5.03) 05/24/17 05:08 Hgb 14.7 gm/dl (11.8-15.2) 05/24/17 05:08 Hct 43.7 % (35.5-45.6) 05/24/17 05:08 MCV 88 fl (84-94) 05/24/17 05:08 MCH 30 pg (28-32) 05/24/17 05:08 MCHC 34 % (32-34) 05/24/17 05:08 RDW 13.0 % (13.2-15.2) L 05/24/17 05:08 Plt Count 230 K/mm3 (140-440) 05/24/17 05:08 Lymph % (Auto) 33.1 % (13.4-35.0) 05/24/17 05:08 [place] % (Auto) 7.6 % (0.0-7.3) H 05/24/17 05:08 Eos % (Auto) 3.1 % (0.0-4.3) 05/24/17 05:08 Baso % (Auto) 0.3 % (0.0-1.8) 05/24/17 05:08 Lymph # 2.6 K/mm3 (1.2-5.4) 05/24/17 05:08 [place] # 0.6 K/mm3 (0.0-0.8) 05/24/17 05:08 Eos # 0.2 K/mm3 (0.0-0.4) 05/24/17 05:08 Baso # 0.0 K/mm3 (0.0-0.1) 05/24/17 05:08 Seg Neutrophils % 55.9 % (40.0-70.0) 05/24/17 05:08 Seg Neutrophils # 4.4 K/mm3 (1.8-7.7) 05/24/17 05:08 PT 13.7 Sec. (12.2-14.9) 05/24/17 05:08 INR 1.00 (0.87-1.13) 05/24/17 05:08 APTT 26.9 Sec. (24.2-36.6) 05/22/17 03:42 Heparin Anti-Xa Level < 0.10 U.I./ml (0.3-0.7) L 05/23/17 06:08 Sodium 137 mmol/L (137-145) 05/24/17 05:08 Potassium 3.9 mmol/L (3.6-5.0) 05/24/17 05:08 Chloride 96.3 mmol/L (98-107) L 05/24/17 05:08 Carbon Dioxide 26 mmol/L (22-30) 05/24/17 05:08 Anion Gap 19 mmol/L 05/24/17 05:08 BUN 13 mg/dL (9-20) 05/24/17 05:08 Creatinine 0.9 mg/dL (0.8-1.5) 05/24/17 05:08 Estimated GFR > 60 ml/min 05/24/17 05:08 BUN/Creatinine Ratio 14 % 05/24/17 05:08 Glucose 161 mg/dL (75-100) H 05/24/17 05:08 POC Glucose 176 (70-105) H 05/24/17 08:29 Hemoglobin A1c 8.0 % (4-6) H 05/22/17 03:42 Calcium 8.8 mg/dL (8.4-10.2) 05/24/17 05:08 Troponin T < 0.010 ng/mL (0.00-0.029) 05/22/17 01:36 NT-Pro-B Natriuret Pep 846.2 pg/mL (0-450) H 05/21/17 22:56 Urine Color Yellow (Yellow) 05/21/17 21:49 Urine Turbidity Clear (Clear) 05/21/17 21:49 Urine pH 5.0 (5.0-7.0) 05/21/17 21:49 Ur Specific [place] 1.023 (1.003-1.030) 05/21/17 21:49 Urine Protein 100 mg/dl mg/dL (Negative) 05/21/17 21:49 Urine Glucose (UA) >=500 mg/dL (Negative) 05/21/17 21:49 Urine Ketones Neg mg/dL (Negative) 05/21/17 21:49 Urine Blood Neg (Negative) 05/21/17 21:49 Urine Nitrite Neg (Negative) 05/21/17 21:49 Urine Bilirubin Neg (Negative) 05/21/17 21:49 Urine Urobilinogen 2.0 mg/dL (<2.0) 05/21/17 21:49 Ur Leukocyte Esterase Neg (Negative) 05/21/17 21:49 Urine WBC (Auto) 2.0 /HPF (0.0-6.0) 05/21/17 21:49 Urine RBC (Auto) 2.0 /HPF (0.0-6.0) 02/08/18 21:49 U Epithel Cells (Auto) 2.0 /HPF (0-13.0) 05/21/17 21:49 Urine Mucus Few /HPF 05/21/17 21:49 Influenza A (Rapid) Negative (Negative) 05/22/17 02:21 Influenza B (Rapid) Negative (Negative) 05/22/17 02:21
[2017-05-24] MEDS ORDERED: BENADRYL IV ONE (12:00)
[2017-05-24] MEDS: APRESOLINE PO SCH ×2 (13:35→21:48)
[2017-05-24] MEDS: COUMADIN PO SCH (16:17)
[2017-05-24] MEDS: LANOXIN PO SCH (16:17)
[2017-05-24] MEDS: PEPCID IV SCH (18:44)
[2017-05-24] MEDS: BENADRYL IV SCH (18:44)
--- NOTE | 2017-05-24 18:48 | Event Note ---
Date: 05/24/17 Nurse notified me during Rounds today that patient mistakenly received Lisinopril about 9am today probably from orders written on 05/23/17 and before patient admitted allergy of Lisinopril that he did not reveal at admission. Patient now c/o Lip swelling but not throat swelling and no distress, no CP, and No SOB or dizziness. So, orders given for Benadryl, Solumedrol and Pepcid. Nurse adviced to continue to monitor patient for any increasing angioedema especially throat swelling and difficulty swallowing, which the patient denies at this time,and notify Physician accordingly. Note that the allergy to Lisinopril documentation was a late entry after above.
[2017-05-24] MEDS ORDERED: TYLENOL PO PRN (22:00)
[2017-05-25] MEDS: BENADRYL IV SCH ×2 (03:41→11:18)
[2017-05-25] MEDS: APRESOLINE PO SCH ×2 (06:08→14:17)
[2017-05-25 06:17] LABS: Basophils % (Auto) 0.3 % (0.0-1.8); Hematocrit 47.7 % (35.5-45.6); Hemoglobin 16.2 gm/dl (11.8-15.2); Lymphocytes # (Auto) 1.3 K/mm3 (1.2-5.4); Lymphocytes % (Auto) 11.5 % (13.4-35.0); Mean Corpuscular HGB Conc 34 % (32-34); Mean Corpuscular Hemoglobin 30 pg (28-32); Mean Corpuscular Volume 87 fl (84-94); Monocytes # (Auto) 0.1 K/mm3 (0.0-0.8); Monocytes % (Auto) 1.1 % (0.0-7.3); Platelet Count 275 K/mm3 (140-440); Red Blood Count 5.47 M/mm3 (3.65-5.03); Red Cell Distribution Width 12.9 % (13.2-15.2)
[2017-05-25 06:27] LABS: BUN/Creatinine Ratio 20; Blood Urea Nitrogen 16 mg/dL (9-20); Calcium 9.2 mg/dL (8.4-10.2); Hemolysis Index 13
[2017-05-25 06:29] LABS: INR 1.07 (0.87-1.13)
[2017-05-25] MEDS: IMDUR PO SCH (09:06)
[2017-05-25] MEDS: ALDACTONE PO SCH (09:07)
[2017-05-25] MEDS: COLACE PO SCH (09:07)
[2017-05-25] MEDS: COREG PO SCH (09:07)
[2017-05-25] MEDS: NOVOLOG SUB-Q SCH ×3 (09:08→17:45)
[2017-05-25] MEDS: LOVENOX SUB-Q SCH ×2 (09:08→17:57)
--- NOTE | 2017-05-25 10:12 | Discharge Summary ---
Providers - Providers Date of Admission: 05/22/17 04:08 Attending physician: GABRIELA BRIZUELA MD 05/22/17 04:48 Consult to Physician [CONS] Routine Consulting Provider: SHAWN BULLOCK Reason For Exam: CHF, PE Place consult to:: Dr. Bullock..Dr. Fiona Zamora Notified:: Answering Service Phone number called:: [phone] Was contact made?: Yes If yes, spoke with:: Dr. 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 fib presented to the emergency department complaining of shortness of breath for the last 5-6 days and progressively getting worse. Patient is also complaining chest pain that started yesterday morning, sting-like pain, 7 out of 10 in intensity, with no radiation, associated with shortness of breath, no diaphoresis. Patient denied leg swelling, palpitation, no nausea, vomiting. Patient used to live in [place] and moved to [place] 3 months ago. She ran out of most of his medications. Initially his ejection fraction was 10% but later improved but don 't know the number. Last time he saw his data center solutions architect was 3 years ago. She was seen by data center solutions architect Jo-Ann and Coumadin with importance of compliance discussed in detail. Patient's medication was also switched to Coreg 25 mg twice a day lisinopril was discontinued as patient has allergy to lithium patient was started on hydralazine and continued imdure. Hospitalization to cover the patient's Lovenox. He is stable for discharge. Ointments discussed in detail with the patient's data center solutions architect office. He did have an allergic reaction to BERNARD inhibitor but will very compromised. This was treated with some steroids and also Benadryl. Also revealed to the patient's findings of pulmonary nodule and recommended a repeat study in 3-6 weeks to ensure resolution Discharge diagnosis Bilateral Pulmonary Embolisim Acute Acute on chronic systolic heart failure Cardiomyopathy Atrial Fibrillation Hypertension accelerated Allergic reaction to BERNARD inhibitor Respiratory failure acute Pulmonary Nodule Obesity Diabetes mellitus type 2 * Disposition: - TO HOME OR SELFCARE Time spent for discharge: 35 MINS Core Measure Documentation - Palliative Care Palliative Care/ Comfort Measures: Not Applicable - Core Measures Any of the following diagnoses?: DVT/PE - VTE Discharge Requirements Deep Vein Thrombosis/Pulmonary Embolism Present on Admission: Yes Has pt received <5 days of overlap therapy or INR<2.0: Yes Anticoagulant overlap therapy prescribed at discharge: Yes Exam - Physical Exam Narrative exam: VITAL SIGNS: Reviewed. GENERAL: The patient appeared well nourished and normally developed. Vital signs as documented. HEAD: No signs of head trauma. EYES: Pupils are equal. Extraocular motions intact. EARS: Hearing grossly intact. MOUTH: Oropharynx is normal. NECK: No adenopathy, no JVD. CHEST: Chest with clear breath sounds bilaterally. No wheezes, rales, or rhonchi. CARDIAC: Regular rate and rhythm. S1 and S2, without murmurs, gallops, or rubs. VASCULAR: No Edema. Peripheral pulses normal and equal in all extremities. ABDOMEN: Soft, without detectable tenderness. No sign of distention. No rebound or guarding, and no masses palpated. Bowel Sounds normal. MUSCULOSKELETAL: Good range of motion of all major joints. Extremities without clubbing, cyanosis or edema. NEUROLOGIC EXAM: Alert and oriented x 3. No focal sensory or strength deficits. Speech normal. Follows commands. PSYCHIATRIC: Mood normal. SKIN: No rash or lesions. - Constitutional Vitals: Temp Pulse Resp BP Pulse Ox 97.5 F L 92 H 18 151/94 98 05/25/17 07:53 05/25/17 09:07 05/25/17 08:37 05/25/17 09:07 05/25/17 08:37 Plan Activity: advance as tolerated, fall precautions Diet: low cholesterol, low salt, diabetic Special Instructions: record daily weights, record daily BP diary, record blood sugar diary Additional Instructions: INR CHECK AT PCP OR ACCOUNTING CONSULTANT OFFICE IN 3 DAYS Follow up with: PRIMARY MD NEYMAR [Primary Care Provider] - 3-5 Days TONY SAMPSON MD [Staff Physician] - 3 Days Forms: Warfarin Discharge Instruction Prescriptions: Carvedilol [Coreg] 25 mg PO BID #60 tablet Digoxin [Digitek] 125 mcg PO QDAY #30 tablet Enoxaparin [Lovenox] 110 mg SUB-Q Q12HR #14 syringe hydrALAZINE [Apresoline TAB] 50 mg PO Q8HR #90 tablet HYDROcodone/APAP 5-325 [[place] 5-325 mg TAB] 1 each PO Q6H PRN #10 tablet PRN Reason: Pain, Moderate (4-6) ISOSORBIDE MONOnitrate [Imdur ER] 30 mg PO QAM #30 tablet Prednisone [predniSONE 5 mg (6-Day Pack, 21 Tabs)] 5 mg PO .TAPER #1 tab.ds.pk Spironolactone [Aldactone] 50 mg PO QDAY #30 tablet Warfarin [Coumadin] 10 mg PO QDAY #60 tablet
[2017-05-25] MEDS: PEPCID IV SCH (11:17)
--- NOTE | 2017-05-25 12:06 | Progress Note ---
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 Pt may discharge home from cardiology standpoint. Follow up in our [place] office for INR check on 05/28/2017 @ 9:30AM. Follow up with Dr. Harrell in our [place] office on 05/28/2017 @ 10:00AM. The patient has been seen in conjunction with Gaudencio who agrees with the assessment and plan of care. Subjective Date of service: 05/25/17 Principal diagnosis: bilateral pulmonary embolism and systolic heart failure Interval history: pt ambulating around room without difficulty, no current cardiac complaints. Objective Last Vital Signs Temp 97.5 F L 05/25/17 07:53 Pulse 81 05/25/17 10:00 Resp 18 05/25/17 08:37 BP 151/94 05/25/17 09:07 Pulse Ox 98 05/25/17 08:37 - Physical Examination General: No Apparent Distress HEENT: Positive: PERRL Neck: Positive: neck supple, trachea midline Cardiac: Positive: Reg Rate and Rhythm, S1/S2 Lungs: Positive: clear to auscultation Neuro: Positive: Grossly Intact Abdomen: Positive: Unremarkable, Soft, Active Bowel Sounds Skin: Negative: Rash, Suspicious Lesions Extremities: Present: normal, warm. Absent: edema - Labs and Meds Coagulation 05/25/17 Range/Units 05:15 PT 14.5 (12.2-14.9) Sec. INR 1.07 (0.87-1.13) CBC 05/25/17 Range/Units 05:15 WBC 11.7 H (4.5-11.0) K/mm3 RBC 5.47 H (3.65-5.03) M/mm3 Hgb 16.2 H (11.8-15.2) gm/dl Hct 47.7 H (35.5-45.6) % Plt Count 275 (140-440) K/mm3 Lymph # 1.3 (1.2-5.4) K/mm3 [place] # 0.1 (0.0-0.8) K/mm3 Eos # 0.0 (0.0-0.4) K/mm3 Baso # 0.0 (0.0-0.1) K/mm3 Comprehensive Metabolic Panel 05/25/17 Range/Units 05:15 Sodium 133 L (137-145) mmol/L Potassium 4.8 D (3.6-5.0) mmol/L Chloride 95.0 L (98-107) mmol/L Carbon Dioxide 22 (22-30) mmol/L BUN 16 (9-20) mg/dL Creatinine 0.8 (0.8-1.5) mg/dL Glucose 263 H (75-100) mg/dL Calcium 9.2 (8.4-10.2) mg/dL - Imaging and Cardiology Echo: report reviewed (moderate spelled it is function EF 2530% mild mitral regurgitation mild tricuspid regurgitation with normal RVSP normal RV size and function) Cardiac cath: other (2005 as per the patient cardiac catheterization was normal)
[2017-05-25 16:40] VITALS: BP 138/95
[2017-05-25] MEDS ORDERED: COUMADIN PO SCH (17:00)
[2017-05-25] MEDS: LANOXIN PO SCH (17:57)
== END 2017-05-25 18:20 | disposition home or self-care (01) | DRG 291 ==
LOC: ED 19:01 → 4A 05-22 04:08
PROVIDERS: ADMIT Internal Medicine; ATTEND Internal Medicine
DX: I11.0 Hypertensive heart disease with heart failure (principal); I26.99 Other pulmonary embolism without acute cor pulmonale; J96.21 Acute and chronic respiratory failure with hypoxia; R65.10 Systemic inflammatory response syndrome (SIRS) of non-infectious origin without acute organ dysfunction; J90 Pleural effusion, not elsewhere classified; I50.23 Acute on chronic systolic (congestive) heart failure; I42.9 Cardiomyopathy, unspecified; I48.91 Unspecified atrial fibrillation; T46.4X5A Adverse effect of angiotensin-converting-enzyme inhibitors, initial encounter; R91.1 Solitary pulmonary nodule; E11.9 Type 2 diabetes mellitus without complications; E66.9 Obesity, unspecified; F12.90 Cannabis use, unspecified, uncomplicated; R16.0 Hepatomegaly, not elsewhere classified; N63.0 Unspecified lump in unspecified breast; G47.00 Insomnia, unspecified; R00.0 Tachycardia, unspecified; Y92.89 Other specified places as the place of occurrence of the external cause; Z68.31 Body mass index [BMI] 31.0-31.9, adult; Z91.14 Patient's other noncompliance with medication regimen; Z71.6 Tobacco abuse counseling; Z71.51 Drug abuse counseling and surveillance of drug abuser
CPT/HCPCS: 36415; 71046; 71275; 80048; 81001; 82962; 83036; 83880; 84484; 85014; 85018; 85025; 85049; 85520; 85610; 85730; 87400; 93005; 93010; 93306; 96361; 96374; 96375; J0360; J1200; J1644; J1650; J1815; J2270; J2405; J2920; J2930; J7030; Q9967

== ENCOUNTER 2017-05-27 21:17 | Emergency (ER) | payer SELFPAY ==
[2017-05-27 23:05] VITALS: BP 121/73
[2017-05-28] MEDS ORDERED: THORAZINE PO ONE (04:34)
--- NOTE | 2017-05-28 04:38 | Emergency Department Report ---
HPI - General Chief Complaint: Sore Throat Time Seen by Provider: 05/28/17 03:15 - HPI HPI: Patient is a 46-year-old male who presents to ED complaining of pain across the past 2 days. Patient states he received some medication after his discharge from this hospital 4 days ago patient states he was hospitalized for congestive heart failure was in hospital for about 4 days. Patient states he is on blood pressure, heart medications. Patient states he coughs or intermittent throughout the day. Patient states nothing helps relieve his he coughs. Patient states he has an appointment to see his primary care physician tomorrow to have his INR levels checked and to follow-up from being hospitalized. Patient states that he comes very bothersome so he came in today. He denies fevers/chills/causes hives from this chest pain/shortness of breath has difficulty breathing/dizziness or headaches ED Past Medical Hx - Past Medical History Previous Medical History?: Yes Hx Hypertension: Yes Hx Congestive Heart Failure: Yes Hx Diabetes: Yes (A1C 8.0) Hx Asthma: No Hx COPD: No - Surgical History Past Surgical History?: No - Social History Smoking Status: Former Smoker Substance Use Type: None - Medications Home Medications: Home Medications Medication Instructions Recorded Confirmed Last Taken Type Glimepiride [Amaryl] 4 mg PO QAM 05/22/17 05/22/17 04/21/17 History Carvedilol [Coreg] 25 mg PO BID #60 tablet 05/25/17 Unknown Rx Digoxin [Digitek] 125 mcg PO QDAY #30 tablet 05/25/17 Unknown Rx Enoxaparin [Lovenox] 110 mg SUB-Q Q12HR #14 syringe 05/25/17 Unknown Rx HYDROcodone/APAP 5-325 [Camilla 1 each PO Q6H PRN #10 tablet 05/25/17 Unknown Rx 5-325 mg TAB] ISOSORBIDE MONOnitrate [Imdur ER] 30 mg PO QAM #30 tablet 05/25/17 Unknown Rx Prednisone [predniSONE 5 mg (6-Day 5 mg PO .TAPER #1 tab.ds.pk 05/25/17 Unknown Rx Pack, 21 Tabs)] Spironolactone [Aldactone] 50 mg PO QDAY #30 tablet 05/25/17 Unknown Rx Warfarin [Coumadin] 10 mg PO QDAY #60 tablet 05/25/17 Unknown Rx hydrALAZINE [Apresoline TAB] 50 mg PO Q8HR #90 tablet 05/25/17 Unknown Rx Ondansetron [Zofran TAB] 8 mg PO Q8HR #6 tablet 05/28/17 Unknown Rx ED Review of Systems ROS: Stated complaint: HICK UPS Other details as noted in HPI Constitutional: denies: chills, fever Eyes: denies: eye pain, eye discharge, vision change ENT: denies: ear pain, throat pain Respiratory: denies: cough, shortness of breath, wheezing Cardiovascular: denies: chest pain, palpitations Endocrine: no symptoms reported Gastrointestinal: denies: abdominal pain, nausea, diarrhea Genitourinary: denies: urgency, dysuria Musculoskeletal: denies: back pain, joint swelling, arthralgia Skin: denies: rash, lesions Neurological: denies: headache, weakness, paresthesias Psychiatric: denies: anxiety, depression Hematological/Lymphatic: denies: easy bleeding, easy bruising Physical Exam - Physical Exam Vital Signs: Vital Signs 05/27/17 22:59 Temperature 97.9 F Pulse Rate 88 Respiratory 16 Rate Blood Pressure 121/73 O2 Sat by Pulse 97 Oximetry Physical Exam: GENERAL: Alert and oriented x3, no apparent distress, Normal Gait, atraumatic. HEAD: Head is normocephalic and a-traumatic. MOUTH:Mouth is well hydrated and without lesions. Tonsils nonerythematous or swollen, Uvula midline, Tongue not elevated. Mucous membranes are moist. Posterior pharynx clear, no exudate or lesions. Patent airways. NECK: Supple. Non edematous, No lymphadenopathy or thyromegaly. No C-spine tenderness LUNGS: Symetrical with respiration, No wheezing, no rales or crackles, CTAB. HEART: S1, S2 present, regular rate and rhythm without murmur, no rubs, no gallops. Non tender to palpation SKIN: Warm and dry, No lesions, No ulceration or induration present. ED Course Vital Signs 05/27/17 22:59 Temperature 97.9 F Pulse Rate 88 Respiratory 16 Rate Blood Pressure 121/73 O2 Sat by Pulse 97 Oximetry ED Medical Decision Making - Medical Decision Making 46-year-old male presents with a hiccups Discussed the patient and he also probably from medications that he is taking. I discussed the patient he cannot stop any of these heart or blood pressure medications and to continue taking it. I discussed the patient I'll give him an antiemetic in the ED that was very wall with pickups. Excised patient given, presents and 5 mg in the disease. I discussed patient keep his appointment with his primary care physician tomorrow. I discussed this with his family care physician. Vital signs of a normal patient is in no acute or respiratory distress. Patient states hiccup resolved while in the ED he had no hiccup episode. I discussed the patient's symptoms worsen he can return to ED immediately Critical care attestation.: If time is entered above; I have spent that time in minutes in the direct care of this critically ill patient, excluding procedure time. ED Disposition Clinical Impression: Hiccups Disposition: DC-01 TO HOME OR SELFCARE Is pt being admited?: No Does the pt Need Aspirin: No Condition: Stable Instructions: Hiccups (ED) Additional Instructions: Make sure to follow up with the primary care physician as discussed. Take all your medications as you've been prescribed. If you have any worsening symptoms or develop new symptoms please return to ED immediately. Prescriptions: Ondansetron [Zofran TAB] 8 mg PO Q8HR #6 tablet Referrals: PRIMARY CARE, [Primary Care Provider] - 3-5 Days Forms: Accompanied Note, Work/School Release Form(ED) Time of Disposition: 04:55
== END 2017-05-28 05:15 | disposition home or self-care (01) ==
LOC: ED 21:17
DX: R06.6 Hiccough (principal); I11.0 Hypertensive heart disease with heart failure; I50.9 Heart failure, unspecified; E11.9 Type 2 diabetes mellitus without complications; Z87.891 Personal history of nicotine dependence; Z79.01 Long term (current) use of anticoagulants
CPT/HCPCS: 99282; Q0161

== ENCOUNTER 2018-12-14 14:51 | Emergency (ER) | payer SELFPAY ==
[2018-12-14 15:02] VITALS: BP 156/85
--- NOTE | 2018-12-14 16:05 | XRay Report ---
CHEST 2 VIEWS INDICATION / CLINICAL INFORMATION: Chest Pain. COMPARISON: 05/21/2017 FINDINGS: SUPPORT DEVICES: None. HEART / MEDIASTINUM: No significant abnormality. LUNGS / PLEURA: Small nodular density in the left lower lung may represent a nipple shadow No pneumot horax. ADDITIONAL FINDINGS: No significant additional findings. IMPRESSION: Small nodular density in the left lower lung may represent a nipple shadow. No other significant abno rmality. Signer Name: Braeden Wynne MD FACR Signed: 12/14/2018 4:00 PM Workstation Name: [id number]
[2018-12-14 16:48] LABS: Basophils # (Auto) 0.1 K/mm3 (0.0-0.1); Basophils % (Auto) 0.7 % (0.0-1.8); Eosinophils # (Auto) 0.2 K/mm3 (0.0-0.4); Eosinophils % (Auto) 2.4 % (0.0-4.3); Hematocrit 42.7 % (35.5-45.6); Hemoglobin 14.3 gm/dl (11.8-15.2); Lymphocytes # (Auto) 2.3 K/mm3 (1.2-5.4); Lymphocytes % (Auto) 30.2 % (13.4-35.0); Mean Corpuscular HGB Conc 34 % (32-34); Mean Corpuscular Volume 90 fl (84-94); Monocytes # (Auto) 0.5 K/mm3 (0.0-0.8); Monocytes % (Auto) 7.1 % (0.0-7.3); Platelet Count 235 K/mm3 (140-440); Red Blood Count 4.75 M/mm3 (3.65-5.03); Red Cell Distribution Width 13.4 % (13.2-15.2)
[2018-12-14 17:14] LABS: BUN/Creatinine Ratio 19; Blood Urea Nitrogen 17 mg/dL (9-20); Calcium 9.2 mg/dL (8.4-10.2); Hemolysis Index 7
[2018-12-14] MEDS ORDERED: ALUM-MAG HYDROX-SIMETH 200-200-20MG/5ML PO ONE (19:10)
[2018-12-14] MEDS ORDERED: IBUPROFEN PO ONE (19:10)
[2018-12-14] MEDS ORDERED: LIDOCAINE VISCOUS 2% PO ONE (19:10)
[2018-12-14] MEDS ORDERED: ASPIRIN PO ONE (21:01)
[2018-12-14] MEDS ORDERED: NITROSTAT SL PRN (21:02)
--- NOTE | 2018-12-14 21:34 | Emergency Department Report ---
ED Chest Pain HPI - General Chief Complaint: Chest Pain Stated Complaint: CHEST PAIN Time Seen by Provider: 12/14/18 21:29 Source: patient Mode of arrival: Ambulatory Limitations: No Limitations - History of Present Illness Initial Comments: Patient is a 40-year-old -[place] male with a history of hypertension CHF and GERD patient presents today for left lateral chest pain exacerbated by position eating as shortness of breath no diaphoresis no nausea vomiting no back pain no cough fever or chills. Symptoms are exacerbated by eating symptoms are relieved by rest MD Complaint: chest pain Onset/Timin -: days(s) Onset: during rest, after eating Pain Location: left chest Pain Radiation: none Severity scale (0 -10): 5 Quality: pressure Consistency: intermittent Improves With: rest Worsens With: eating, supine Other Symptoms: acid taste in mouth, burping Treatments Prior to Arrival: none - Related Data On Oral Contraceptives: No Home Medications Medication Instructions Recorded Confirmed Last Taken Glimepiride [Amaryl] 4 mg PO QAM 05/22/17 05/22/17 04/21/17 Previous Rx's Medication Instructions Recorded Last Taken Type Carvedilol [Coreg] 25 mg PO BID #60 tablet 05/25/17 Unknown Rx Digoxin [Digitek] 125 mcg PO QDAY #30 tablet 05/25/17 Unknown Rx Enoxaparin [Lovenox] 110 mg SUB-Q Q12HR #14 syringe 05/25/17 Unknown Rx HYDROcodone/APAP 5-325 [Gray 1 each PO Q6H PRN #10 tablet 05/25/17 Unknown Rx 5-325 mg TAB] ISOSORBIDE MONOnitrate [Imdur ER] 30 mg PO QAM #30 tablet 05/25/17 Unknown Rx Prednisone [predniSONE 5 mg (6-Day 5 mg PO .TAPER #1 tab.ds.pk 05/25/17 Unknown Rx Pack, 21 Tabs)] Spironolactone [Aldactone] 50 mg PO QDAY #30 tablet 05/25/17 Unknown Rx Warfarin [Coumadin] 10 mg PO QDAY #60 tablet 05/25/17 Unknown Rx hydrALAZINE [Apresoline TAB] 50 mg PO Q8HR #90 tablet 05/25/17 Unknown Rx Ondansetron (Nf) [Zofran TAB] 8 mg PO Q8HR #6 tablet 05/28/17 Unknown Rx Famotidine [Pepcid] 20 mg PO BID #30 tablet 12/14/18 Unknown Rx Ibuprofen [Motrin 800 MG tab] 800 mg PO Q8HR PRN #30 tablet 12/14/18 Unknown Rx Allergies Allergy/AdvReac Type Severity Reaction Status Date / Time lisinopril Allergy Swelling Verified 05/24/17 09:53 Heart Score - HEART Score History: Slightly suspicious EKG: Normal Age: 45-65 Risk factors: > 3 risk factors or hx of atherosclerotic disease Troponin: < normal limit HEART Score: 3 ED Review of Systems ROS: Stated complaint: CHEST PAIN Other details as noted in HPI Constitutional: denies: chills, fever Eyes: denies: eye pain, eye discharge, vision change ENT: denies: ear pain, throat pain Respiratory: denies: cough, orthopnea, shortness of breath, wheezing Cardiovascular: chest pain (left anterior lateral chest wall pain ). denies: palpitations, dyspnea on exertion, orthopnea, edema, syncope, paroxysmal nocturnal dyspnea Endocrine: no symptoms reported Gastrointestinal: denies: abdominal pain, nausea, vomiting, diarrhea, constipation, hematemesis, melena, hematochezia Genitourinary: denies: urgency, dysuria Musculoskeletal: denies: back pain, joint swelling, arthralgia Skin: denies: rash, lesions Neurological: as per HPI Psychiatric: as per HPI Hematological/Lymphatic: denies: easy bleeding, easy bruising ED Past Medical Hx - Past Medical History Previous Medical History?: Yes Hx Hypertension: Yes Hx Congestive Heart Failure: Yes Hx Diabetes: Yes (A1C 8.0) Hx Asthma: No Hx COPD: No - Surgical History Past Surgical History?: No - Social History Smoking Status: Never Smoker Substance Use Type: None - Medications Home Medications: Home Medications Medication Instructions Recorded Confirmed Last Taken Type Glimepiride [Amaryl] 4 mg PO QAM 05/22/17 05/22/17 04/21/17 History Carvedilol [Coreg] 25 mg PO BID #60 tablet 05/25/17 Unknown Rx Digoxin [Digitek] 125 mcg PO QDAY #30 tablet 05/25/17 Unknown Rx Enoxaparin [Lovenox] 110 mg SUB-Q Q12HR #14 syringe 05/25/17 Unknown Rx HYDROcodone/APAP 5-325 [Gray 1 each PO Q6H PRN #10 tablet 05/25/17 Unknown Rx 5-325 mg TAB] ISOSORBIDE MONOnitrate [Imdur ER] 30 mg PO QAM #30 tablet 05/25/17 Unknown Rx Prednisone [predniSONE 5 mg (6-Day 5 mg PO .TAPER #1 tab.ds.pk 05/25/17 Unknown Rx Pack, 21 Tabs)] Spironolactone [Aldactone] 50 mg PO QDAY #30 tablet 05/25/17 Unknown Rx Warfarin [Coumadin] 10 mg PO QDAY #60 tablet 05/25/17 Unknown Rx hydrALAZINE [Apresoline TAB] 50 mg PO Q8HR #90 tablet 05/25/17 Unknown Rx Ondansetron (Nf) [Zofran TAB] 8 mg PO Q8HR #6 tablet 05/28/17 Unknown Rx Famotidine [Pepcid] 20 mg PO BID #30 tablet 12/14/18 Unknown Rx Ibuprofen [Motrin 800 MG tab] 800 mg PO Q8HR PRN #30 tablet 12/14/18 Unknown Rx ED Physical Exam - General Limitations: No Limitations General appearance: alert, in no apparent distress - Head Head exam: Present: atraumatic, normocephalic - Eye Eye exam: Present: normal appearance, PERRL, EOMI Pupils: Present: normal accommodation - ENT ENT exam: Present: normal orophraynx, mucous membranes moist, TM's normal bilaterally, normal external ear exam - Neck Neck exam: Present: normal inspection, full ROM. Absent: tenderness, lymphadenopathy, thyromegaly - Respiratory Respiratory exam: Absent: normal lung sounds bilaterally, wheezes, stridor, chest wall tenderness - Cardiovascular Cardiovascular Exam: Present: regular rate, normal rhythm, normal heart sounds. Absent: systolic murmur, diastolic murmur, rubs, gallop - GI/Abdominal GI/Abdominal exam: Present: soft, normal bowel sounds. Absent: distended, tenderness, guarding, rebound, bruit, hernia - Rectal Rectal exam: Present: deferred - Extremities Exam Extremities exam: Present: normal inspection, full ROM, normal capillary refill. Absent: tenderness - Back Exam Back exam: Present: normal inspection, full ROM. Absent: tenderness, CVA tenderness (R), CVA tenderness (L), muscle spasm, paraspinal tenderness, rash noted - Neurological Exam Neurological exam: Present: alert, oriented X3, CN II-XII intact, normal gait, reflexes normal. Absent: motor sensory deficit - Psychiatric Psychiatric exam: Present: normal affect, normal mood - Skin Skin exam: Present: warm, dry, intact, normal color. Absent: rash ED Course Vital Signs 12/14/18 15:01 Temperature 98.7 F Pulse Rate 86 Respiratory 16 Rate Blood Pressure 156/85 O2 Sat by Pulse 95 Oximetry RENE score - Rene Score Age > 65: (0) No Aspirin use within the Past 7 Days: (0) No 3 or more CAD Risk Factors: (1) Yes 2 or more Angina events in past 24 hrs: (0) No Known CAD with more than 50% Stenosis: (0) No Elevated Cardiac Markers: (0) No ST Deviation Greater than 0.5mm: (0) No RENE Score: 1 ED Medical Decision Making - Lab Data Result diagrams: 12/14/18 16:16 12/14/18 16:16 - EKG Data EKG shows normal: sinus rhythm, axis, intervals, QRS complexes, ST-T waves Rate: normal - EKG Data When compared to previous EKG there are: no significant change Interpretation: normal EKG (ekg interp by ed attending NSR no ST Elevated UT ) - Radiology Data Radiology results: report reviewed, image reviewed Ordering Physician: MARÍA COOK MD Date of Service: 12/14/18 Procedure(s): XR chest routine 2V Accession Number(s): [id number] cc: ED MD JOEY Fluoro Time In Minutes: CHEST 2 VIEWS INDICATION / CLINICAL INFORMATION: Chest Pain. COMPARISON: 05/21/2017 FINDINGS: SUPPORT DEVICES: None. HEART / MEDIASTINUM: No significant abnormality. LUNGS / PLEURA: Small nodular density in the left lower lung may represent a nipple shadow No pneumothorax. ADDITIONAL FINDINGS: No significant additional findings. IMPRESSION: Small nodular density in the left lower lung may represent a nipple shadow. No other significant abnormality. Signer Name: Braeden Wynne MD FACR Signed: 12/14/2018 4:00 PM Workstation Name: [id number] Transcribed By: MS Dictated By: Braeden Wynne MD Electronically Authenticated By: Braeden Wynne MD Signed Date/Time: 12/14/18 1600 DD/ 1559 TD/TT: - Medical Decision Making no infiltrates no opacities ? possible small LLL nodule, no cough on fever no sob no wheezing no hemoptysis, pt will follow up with pulmonology , will rx pepcid po bid follow up with pcp in 2-3 days , follow up with pulmonology in 2-3 days, pt verbalized agreement and understanding with discharge plan. Critical care attestation.: If time is entered above; I have spent that time in minutes in the direct care of this critically ill patient, excluding procedure time. ED Disposition Clinical Impression: Lung nodule Chest pain Qualifiers: Chest pain type: unspecified Qualified Code(s): R07.9 - Chest pain, unspecified Disposition: TO HOME OR SELFCARE Is pt being admited?: No Does the pt Need Aspirin: No Condition: Stable Instructions: Chest Pain (ED) Prescriptions: Ibuprofen [Motrin 800 MG tab] 800 mg PO Q8HR PRN #30 tablet PRN Reason: pain fever Famotidine [Pepcid] 20 mg PO BID #30 tablet Referrals: [facility] [Outside] - 3-5 Days Forms: Work/School Release Form(ED) Time of Disposition: 21:45
== END 2018-12-14 22:13 | disposition home or self-care (01) ==
LOC: ED 14:51
DX: R91.1 Solitary pulmonary nodule (principal); R07.89 Other chest pain; I11.0 Hypertensive heart disease with heart failure; I50.9 Heart failure, unspecified; E11.9 Type 2 diabetes mellitus without complications; Z88.8 Allergy status to other drugs, medicaments and biological substances
CPT/HCPCS: 36415; 71046; 80048; 84484; 85025; 93005; 93010